=== PATIENT | female | born 2005 | race Caucasian/White ===

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

== ENCOUNTER 2025-01-31 09:04 | Outpatient (CLI) | payer OTHER, SELFPAY ==
[2025-02-05 09:59] LABS: Pap Test Digital Imaging Done
== END 2025-01-31 09:05 | disposition home or self-care (01) ==
LOC: NFLDREF 09:04
PROVIDERS: PCP Family Medicine; Visit Provider Physician Assistant
DX: Z12.4 Encounter for screening for malignant neoplasm of cervix (principal)
CPT/HCPCS: 87624; 87625; 88141; 88142; 88175